=== PATIENT | male | born 1970 | race Native Hawaiian/Other Pacific Islander ===

== ENCOUNTER 2018-01-07 14:26 | Emergency (ER) | payer OTHER, BC ==
[~2018-01-07] VITALS: Ht 177.8 cm; Wt 86.2 kg
== END 2018-01-07 15:40 | disposition home or self-care (01) ==
LOC: ED 14:26
DX: S05.02XA Injury of conjunctiva and corneal abrasion without foreign body, left eye, initial encounter (principal); I10 Essential (primary) hypertension; X58.XXXA Exposure to other specified factors, initial encounter; Y99.0 Civilian activity done for income or pay
CPT/HCPCS: 99282

== ENCOUNTER 2019-06-14 10:20 | Emergency (ER) | payer OTHER, BC ==
[~2019-06-14] VITALS: Ht 177.8 cm; Wt 88.5 kg
[2019-06-14] MEDS ORDERED: LISINOPRIL-HCT1 EAC2 PO (10:59)
== END 2019-06-14 12:21 | disposition home or self-care (01) ==
LOC: ED 10:20
DX: S39.012A Strain of muscle, fascia and tendon of lower back, initial encounter (principal); I10 Essential (primary) hypertension; Z79.899 Other long term (current) drug therapy; X50.0XXA Overexertion from strenuous movement or load, initial encounter
CPT/HCPCS: 99283

== ENCOUNTER 2023-01-18 10:46 | Emergency (ER) | payer BC ==
[~2023-01-18] VITALS: Ht 177.8 cm; Wt 96.6 kg
[~2023-01-18 10:46] MED LIST: LISINOPRIL-HCT1 EAC2 PO
[2023-01-18] MEDS ORDERED: NAPROSYN500 MG PO (11:59)
[2023-01-18] MEDS ORDERED: METHOCARBAMOL750 MG PO (11:59)
[2023-01-18 12:13] VITALS: BP 115/96
== END 2023-01-18 12:13 | disposition home or self-care (01) ==
LOC: ED 10:46
DX: S39.012A Strain of muscle, fascia and tendon of lower back, initial encounter (principal); X58.XXXA Exposure to other specified factors, initial encounter; I10 Essential (primary) hypertension; Z79.899 Other long term (current) drug therapy
CPT/HCPCS: 72100; 81001; 96372; 99283-25; J1885

== ENCOUNTER 2023-06-21 11:04 | Emergency (ER) | payer BC ==
[~2023-06-21] VITALS: Ht 177.8 cm; Wt 96.0 kg
[~2023-06-21 11:04] MED LIST changes: +METHOCARBAMOL750 MG PO; +MUPIROCIN22 GM TOP; +NAPROSYN500 MG PO
[2023-06-21 11:49] LABS: BASOPHILS 0.5 % (0-2); HEMATOCRIT 40.3 % (35.0-50.0); HEMOGLOBIN 13.7 g/dL (12.0-18.0); LYMPHOCYTES 10.5 % (24-44); MCH 30.1 (27-36); MCHC 33.9 g/dl (30-36); PLATELET COUNT 205 K/uL (140-440); RBC 4.53 M/ul (4.3-5.7); RDW 12.9 (10.5-15.0)
[2023-06-21 12:04] LABS: ALBUMIN 2.3 g/dL (3.4-5.0); ALBUMIN/GLOBULIN RATIO 0.45 (1.1-2.4); ANION GAP 10.5 (7-21); BILIRUBIN, TOTAL 0.5 ng/dL (0.2-1.0); BUN/CREATININE RATIO 13.13 (6.0-28.6); CALCIUM 8.2 mg/dL (8.5-10.1); CREATININE, SERUM 0.99 mg/dL (0.70-1.30); POTASSIUM 3.5 mmol/L (3.5-5.1); PROTEIN, TOTAL 7.4 g/dL (6.4-8.2)
[2023-06-21] MEDS ORDERED: IBU600 MG PO (13:22)
[2023-06-21] MEDS ORDERED: CLEOCIN HCL300 MG PO (13:22)
[2023-06-21 13:34] VITALS: BP 138/92
== END 2023-06-21 13:35 | disposition home or self-care (01) ==
LOC: ED 11:04
PROVIDERS: Internal Medicine
DX: K11.20 Sialoadenitis, unspecified (principal); F17.220 Nicotine dependence, chewing tobacco, uncomplicated; D72.829 Elevated white blood cell count, unspecified; I10 Essential (primary) hypertension; Z79.899 Other long term (current) drug therapy
CPT/HCPCS: 36415; 70488; 80053; 85025; J1885; Q9967